=== PATIENT | male | born 1945 | race Caucasian/White ===

== ENCOUNTER 2019-05-14 07:28 | Day surgery (SDC) | payer MEDICARE, BC ==
[2019-05-14] VITALS (9 sets, daily range): BP systolic 98–152; BP diastolic 49–67; PULSE 50–65; TEMP 97.5–97.8
[~2019-05-14] VITALS: Ht 180.3 cm; Wt 85.1 kg
[2019-05-14] MEDS ORDERED: MULTI VITAMINS1 TAB PO (07:53)
[2019-05-14] MEDS ORDERED: CALCIUM 600MG+D1 TAB PO (07:53)
[2019-05-14] MEDS ORDERED: STOOL SOFTENER100 M2 PO (07:54)
[2019-05-14] MEDS ORDERED: ASPIRIN 81M81 MG/TA2 PO (07:54)
[2019-05-14] MEDS ORDERED: FEOSOL45 MG PO (07:57)
[2019-05-14] MEDS ORDERED: MASON NATURAL1200 MG PO (07:58)
[2019-05-14] MEDS ORDERED: SAW PALMETTO S450 MG PO (07:59)
[2019-05-14] MEDS ORDERED: ZANTAC 150MG T150 MG PO (07:59)
--- NOTE | 2019-05-14 11:45 | NUR ---
Patient returns to room 7 per cart from PACU accompanied by Miguelina EPSTEIN and is awake and alert. IV fluids infusing and denies pain or nausea. Taking ice chips. Incisions x3 on abdomen covered with gonzalez set and no drainage noted. Temp 98.1 and room air sats 94%.
--- NOTE | 2019-05-14 12:00 | NUR ---
Resting and taking ice chips. Offers no complaints of pain.
--- NOTE | 2019-05-14 12:15 | NUR ---
Family in room and resting.
--- NOTE | 2019-05-14 12:30 | NUR ---
Eating toast and drinking coffee. Continues to deny pain or nausea. States that he feels slightly light headed when setting up.
--- NOTE | 2019-05-14 12:45 | NUR ---
Room air sats 95%. Resting without complaints of pain.
--- NOTE | 2019-05-14 13:15 | NUR ---
Resting with eyes closed and denies pain or nausea.
[2019-05-14] MEDS ORDERED: NORCO 325 MG-51 TAB PO (13:30)
--- NOTE | 2019-05-14 14:15 | NUR ---
Had been sleeping with eyes closed. Awake now and sipping on coffee. Family in room.
--- NOTE | 2019-05-14 14:30 | NUR ---
IV to INT. Assisted up to the bathroom and gait is steady. Able to void and returns to room. INT needle discontinued. Denies pain or nausea.
--- NOTE | 2019-05-14 14:50 | NUR ---
Patient dresses self and tolerates activity well. Continues to deny pain or nausea.
--- NOTE | 2019-05-14 15:22 | NUR ---
Dismissal instructions given and provided script for [place]. Follow up appointment date and time given and office number for questions or concerns. Voices understanding of home cares and restrictions. Instructions signed.
--- NOTE | 2019-05-14 15:30 | NUR ---
Patient dismissed to home per private vehicle driven by spouse and taken to the front door per wheelchair accompanied by RN with instructions and script in hand.
== END 2019-05-14 15:30 | disposition home or self-care (01) ==
LOC: SDCO 07:28
DX: K40.90 Unilateral inguinal hernia, without obstruction or gangrene, not specified as recurrent (principal); G47.33 Obstructive sleep apnea (adult) (pediatric); K21.9 Gastro-esophageal reflux disease without esophagitis; M19.90 Unspecified osteoarthritis, unspecified site; Z79.82 Long term (current) use of aspirin; Z85.828 Personal history of other malignant neoplasm of skin; Z96.653 Presence of artificial knee joint, bilateral; Z80.41 Family history of malignant neoplasm of ovary; Z82.49 Family history of ischemic heart disease and other diseases of the circulatory system
CPT/HCPCS: C1781; J0690; J1100; J1885; J2405; J2704; J3010; J7120